=== PATIENT | female | born 1980 | race Caucasian/White ===

== ENCOUNTER 2020-11-17 15:53 | Emergency (ER) | payer OTHER ==
[2020-11-17] MEDS ORDERED: BUFFERED LIDOCAINE 10 ML SYRINGE SUBQ STA (16:13)
--- NOTE | 2020-11-17 16:19 | ED Physician Documentation ---
PD HPI UPPER EXT INJURY - Stated complaint Stated Complaint: RIGHT FINGER INJURY - Chief complaint Chief Complaint: Ext Problem - History obtained from History obtained from: Patient ([place] and impacted on the right index finger and has a deformed finger there. No other injuries.) Review of Systems Constitutional: reports: Reviewed and negative Eyes: reports: Reviewed and negative Ears: reports: Reviewed and negative PD PAST MEDICAL HISTORY - Past Medical History Past Medical History: Yes Cardiovascular: None Respiratory: None Neuro: None Endocrine/Autoimmune: None GI: Ulcerative colitis [employer]: None : None HEENT: None Psych: None Musculoskeletal: None Derm: None - Past Surgical History Past Surgical History: Yes /[employer]: section - Present Medications Home Medications: Ambulatory Orders Medication Instructions Recorded Confirmed Mesalamine [Lialda] 4.8 gm PO DAILY PM 11/17/20 11/17/20 - Allergies Allergies/Adverse Reactions: Allergies Allergy/AdvReac Type Severity Reaction Status Date / Time prochlorperazine AdvReac Nausea Verified 11/17/20 16:01 [From Compazine] - Social History Does the pt smoke?: No Smoking Status: Never smoker Does the pt drink ETOH?: Yes Does the pt have substance abuse?: No - Immunizations Immunizations are current?: Yes PD ED PE NORMAL - Vitals Vital signs reviewed: Yes - General General: Alert and oriented X 3, No acute distress - Extremities Extremities: Other (The right index finger at the PIP has a lateral dislocation with angulation.) - Neuro Neuro: Alert and oriented X 3, Normal speech Results - Vitals Vitals: Vital Signs - 24 hr 11/17/20 15:57 Temperature 36.6 C Heart Rate 77 Respiratory 15 Rate Blood Pressure 136/84 H O2 Saturation 100 Oxygen O2 Source Room air - Rads (name of study) Right second finger x-ray Radiology: EMP read contemporaneously (Dislocation of the PIP of the right second finger, 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, discussed with patient, she has no symptoms there.) Procedures - Reduction Body part reduced: Right, Finger (second at PIP) Fracture or dislocation: Dislocation Anesthesia: Digital block (with 2ml buffered lidocaine) Reduction aftercare: Alignment improved, Splint applied (metal foam finger splint), Patient tolerated well Departure - Departure Disposition: Home, Self Care Clinical Impression: Finger dislocation Qualifiers: Encounter type: initial encounter Qualified Code(s): S63.259A - Unspecified dislocation of unspecified finger, initial encounter Condition: Good Record reviewed to determine appropriate education?: Yes Instructions: ED Dislocation Finger Redu Comments: Follow-up with an orthopedist closer to home within the week. Call Thursday for an appointment. Keep the splint on and dry for the most part but you can remove it for washing and if not doing anything with the finger. Ibuprofen as needed for pain.
--- NOTE | 2020-11-17 16:33 | XRAY Report ---
PROCEDURE: Finger(s) RT INDICATIONS: finger inj TECHNIQUE: AP hand, 2 views of the index finger(s) acquired. COMPARISON: None FINDINGS: Bones: There is dislocation of the middle phalanx of the index finger ulnarly. There are no definite fractures. Benign-appearing lucent lesion within the middle phalanx of the fifth digit. This measures 4 mm in diameter. Soft tissues: Soft tissue swelling is noted throughout the index finger. IMPRESSION: Ulnar dislocation of the middle phalanx of the index finger. No definite fracture. Benign-appearing lucent lesion within the middle phalanx of the fifth digit likely representing encho ndroma. Reviewed by: Epifanio Burnett DO on 11/17/2020 3:32 PM HARINDER Approved by: Epifanio Burnett DO on 11/17/2020 3:32 PM HARINDER Station ID: [id number]
[2020-11-17 16:47] VITALS: BP 128/75
== END 2020-11-17 16:47 | disposition home or self-care (01) ==
LOC: ED 15:53
DX: S63.270A Dislocation of unspecified interphalangeal joint of right index finger, initial encounter (principal); W18.30XA Fall on same level, unspecified, initial encounter; Y92.832 Beach as the place of occurrence of the external cause
CPT/HCPCS: 26755